=== PATIENT | male | born 1950 | race Caucasian/White ===

== ENCOUNTER → 2019-08-05 | Outpatient (CLI) | payer MEDICARE, OTHER ==
--- NOTE | 2019-08-10 16:25 | CRLMR ---
DATE OF SERVICE: 08/05/19 CLINICAL DATA: LEFT SHOULDER PAIN, UNSPECIFIED CHRONICITY LEFT SHOULDER MRI: Routine MR protocol. No priors. Motion artifact degrades image quality of multiple sequences. The supraspinatus tendon is abnormal. There is complete disruption of the supraspinatus tendon with width greater than 4 cm retraction. There is also atrophy of the supraspinatus muscle. The infraspinatus tendon appears intact. There is, however, atrophy of the infraspinatus muscle. The teres minor tendon appears intact. The subscapularis tendon is also abnormal and discontinuous consistent with a complete tear. There is also abnormal signal within the biceps tendon and it appears to be partially discontinuous consistent with a partial tear. 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 There is marrow edema within the greater tuberosity of the proximal humerus. I do not see a definite fracture. There is fluid in the glenohumeral joint. There is also fluid in the subacromial subdeltoid bursa. The inferior glenohumeral ligament appears intact. The superior and middle glenohumeral ligaments are not well seen. No other significant findings. [id number] [facility]
== END ==
LOC: LB.MRI 11:28
PROVIDERS: ATTEND Orthopaedic Surgery
DX: M25.512 Pain in left shoulder (principal)
CPT/HCPCS: 73221-LT

== ENCOUNTER 2025-06-11 12:00 | Day surgery (SDC) | payer MEDICARE ==
[2025-06-11] MEDS ORDERED: Propofol 200 MG/20 ML SDV ONE (13:00)
[2025-06-11 13:39] VITALS: BP 138/92; PULSE 70
== END 2025-06-11 14:35 | disposition home or self-care (01) ==
LOC: LB.SDS 12:00
PROVIDERS: ATTEND Surgery
DX: Z12.11 Encounter for screening for malignant neoplasm of colon (principal); D12.6 Benign neoplasm of colon, unspecified; I48.91 Unspecified atrial fibrillation; K21.9 Gastro-esophageal reflux disease without esophagitis; I10 Essential (primary) hypertension; Z88.0 Allergy status to penicillin; Z79.01 Long term (current) use of anticoagulants; Z85.038 Personal history of other malignant neoplasm of large intestine; Z79.899 Other long term (current) drug therapy
CPT/HCPCS: 88305; J2704; J7030

== ENCOUNTER 2025-07-05 18:37 | Emergency (ER) | payer MEDICARE ==
[2025-07-05 19:09] LABS: APPEARANCE,URINE CLEAR (CLEAR); GLUCOSE,URINE NEGATIVE (NEGATIVE); OCCULT BLOOD,URINE TRACE-LYSED (NEGATIVE)
[2025-07-05 19:18] LABS: BASOPHILS ABSOLUTE AUTO 0.02 K/uL (0.02-0.10); BASOPHILS PERCENT AUTO 0.3 % (0.0-0.5); EOSINOPHILS ABSOLUTE AUTO 0.22 K/uL (0.04-0.40); EOSINOPHILS PERCENT AUTO 3.8 % (1.0-5.0); LYMPHOCYTES ABSOLUTE AUTO 1.40 K/uL (1.50-4.00); LYMPHOCYTES PERCENT AUTO 24.5 % (20.0-40.0); MEAN PLATELET VOLUME 9.3 fL (6.0-10.0); MONOCYTES ABSOLUTE AUTO 0.51 K/uL (0.20-0.80); MONOCYTES PERCENT AUTO 8.9 % (3.0-10.0); NEUTROPHILS ABSOLUTE AUTO 3.57 K/uL (2.00-7.50); NEUTROPHILS PERCENT AUTO 62.5 % (45.0-70.0); PLATELET COUNT,PLT 155 K/uL (150-400); RED BLOOD CELL COUNT 4.93 M/uL (4.50-6.50); RED CELL DISTRIBUTION WIDTH 19.4 % (11.0-16.0); WHITE BLOOD CELL COUNT,WBC 5.7 K/uL (4.0-11.0)
[2025-07-05 19:22] LABS: EPITHELIAL CELLS,URINE FEW /HPF
[2025-07-05 19:24] LABS: UROTHELIAL CELLS,URINE FEW /HPF
[2025-07-05 19:37] LABS: A/G RATIO 1.2 (0.8-2.0); ALANINE AMINOTRANSFERASE,ALT 23 U/L (12-78); ASPARTATE AMNIOTRANSFERASE,AST 35 U/L (15-37); BILIRUBIN TOTAL 0.7 mg/dL (0.0-1.0); BLOOD UREA NITROGEN,BUN 15 mg/dL (8-26); CARBON DIOXIDE,CO2 26.2 mmol/L (21.0-32.0); CHLORIDE,CL 102 mmol/L (98-107); CREATININE 1.30 mg/dL (0.70-1.30); ESTIMATED GFR 57 mL/min (>60); GLUCOSE RANDOM 103 mg/dL (74-100); POTASSIUM,K 3.7 mmol/L (3.5-5.1); PROTEIN TOTAL,TP 6.6 g/dL (6.4-8.2); SODIUM,NA 139 mmol/L (136-145)
[2025-07-05 20:37] VITALS: BP 155/78; PULSE 88
== END 2025-07-05 20:00 | disposition home or self-care (01) ==
LOC: LB.ED 18:37
DX: R33.9 Retention of urine, unspecified (principal); I12.9 Hypertensive chronic kidney disease with stage 1 through stage 4 chronic kidney disease, or unspecified chronic kidney disease; N18.9 Chronic kidney disease, unspecified; Z98.84 Bariatric surgery status; Z88.0 Allergy status to penicillin; Z79.01 Long term (current) use of anticoagulants; Z79.899 Other long term (current) drug therapy
CPT/HCPCS: 36415; 51798; 74176; 80053; 81001; 85025; 99284; C1758